=== PATIENT | male | born 1965 | race Caucasian/White ===

== ENCOUNTER 2018-09-14 12:10 | Inpatient (IN) | payer OTHER ==
[2018-09-14] MEDS ORDERED: HYDROMORPHONE HCL 1 MG/ML INJ IV PRN (13:12)
[2018-09-14] MEDS ORDERED: DIPHENHYDRAMINE 25 MG TAB/CAP PO PRN (13:13)
[2018-09-14] MEDS ORDERED: LOPERAMIDE HCL 2 MG CAPSULE PO PRN (13:13)
[2018-09-14] MEDS ORDERED: ONDANSETRON 4 MG (ODT) TAB PO PRN (13:14)
[2018-09-14] MEDS ORDERED: POLYETHYL GLY 3350 17 GM/DOSE PO PRN (13:14)
[2018-09-14] MEDS ORDERED: ONDANSETRON 4 MG/2 ML VIAL IV PRN (13:14)
--- NOTE | 2018-09-14 13:19 | RAD REPORT ---
EXAM DESCRIPTION: Martin Hinojosa (2 Views)09/14/2018 1:12 pm CLINICAL HISTORY: Chest pain COMPARISON: None FINDINGS: The lungs appear clear of acute infiltrate. The heart is normal size IMPRESSION: No acute abnormalities displayed
[2018-09-14] MEDS ORDERED: VANCOMYCIN/NS 1 gm 1 GM/250 ML BAG IV SCH (13:30)
[2018-09-14 13:40] LABS: Absolute Lymphocytes (CBC) 2.9 K/uL (0.7-4.9); Basophils % 0.7 % (0-1.3); Eosinophils % 1.5 % (0-4.4); Hematocrit 41.9 % (39.6-49.0); Lymphocytes % 24.3 % (15.3-44.8); MPV 9.7 fL (7.6-11.3); Monocytes % 8.4 % (3.3-12.3); RBC Red Blood Cell Count 4.79 M/uL (4.33-5.43)
[2018-09-14 14:26] LABS: Albumin 3.6 g/dL (3.4-5.0); Bilirubin Direct 0.1 mg/dL (0-0.2); Bilirubin Total 0.5 mg/dL (0.2-1.0); Magnesium 2.5 mg/dL (1.8-2.4); Phosphorus 2.6 mg/dL (2.5-4.9); Potassium 3.9 mmol/L (3.5-5.1); Protein, Total 7.4 g/dL (6.4-8.2); Thyroid Stimulating Hormone 1.83 uIU/mL (0.360-3.740)
[2018-09-14] MEDS: NACHLORIDE 0.45% 1,000 ML IV SCH (14:44)
--- NOTE | 2018-09-14 14:55 | RAD REPORT ---
EXAM DESCRIPTION: Meera Paz Left09/14/2018 2:47 pm CLINICAL HISTORY: Left leg pain/wound FINDINGS: No fracture is seen. No bony destructive lesion noted. Diffuse edema is present within subcutaneous tissues
[2018-09-14] MEDS: VANCOMYCIN 1.75 GM in NA CHLORIDE 0.9% 500 ML IVPB SCH (16:58)
[2018-09-14] MEDS: ENOXAPARIN 40 MG/0.4 ML SQ SCH (17:00)
[2018-09-14 18:21] LABS: Urine Appearance CLEAR; Urine Bilirubin NEGATIVE (NEG); Urine Blood NEGATIVE (NEG); Urine Color YELLOW; Urine Glucose NEGATIVE (NEG); Urine Microscopic Reflex NO UMIC; Urine Protein NEGATIVE (NEG); Urine Specific Gravity 1.015 (1.005-1.030)
--- NOTE | 2018-09-14 19:22 | CON ---
Date of Consultation: 09/14/2018 Reason For Consultation: Infection, left leg. History Of Present Illness: The patient is a 53-year-old gentleman, who presented to Dr. Patten's off ice today with a worsening infection of his left leg. The patient states that he had an injury via a metal object about 2 weeks ago and about a week ago it started to become infected. He went and saw his physician on Monday, was started on Keflex and followed up today and the redness got worse and th ere was pus oozing from the wound on the left anterior leg surrounded by erythema, warmth, and edema. Therefore, he was admitted and I was consulted. He is awake, alert, denies any fever or chills. N o sore throat, runny nose, cough, headaches, or dizziness. No chest pain. Review of Systems: Otherwise unremarkable. Past Medical History: Significant for hyperlipidemia, osteoarthritis, hypothyroidism, cholelithiasis . Past Surgical History: Hernia surgery, ear surgery. Allergies: NO ALLERGIES. Social History: He quit smoking 4-5 years ago and denies drinking. Family History: Noncontributory. Physical Examination: Vital signs: Stable. Currently afebrile. General: Awake, alert, oriented x3. Head and Neck: Cranial nerves 2 through 12 grossly within normal limits. No neck masses. No JVD. Throat clear. Neck is supple. Chest: Clear. Heart: S1, S2. Abdomen: Soft. Extremities: Neurovascularly intact. Nonfocal. Left anterior leg approximately 10 x 15 cm area of erythema, warmth, edema with central fluctuance and induration as well as necrotic tissue with t issue approximately 3 x 3 cm and pus oozing. Laboratory Data: Pending. X-rays: Pending. Assessment: Left leg abscess with cellulitis. Recommendation: Admit n.p.o. after midnight. IV fluid, IV antibiotic to the OR for incision, draina ge, and debridement of the left leg abscess. The patient and family understand the risks, benefits, and alternatives and agreed to proceed. /MODL Voice ID: [id number] Report ID: [id number]
--- NOTE | 2018-09-14 23:22 | EKG ---
Test Date: 2018-09-14 Test Time: 13:19:08 Client Technical Professional: TOMA MEASUREMENT RESULTS: Intervals: Rate: 68 SD: 168 QRSD: 106 QT: 388 QTc: 412 [place]: P: 66 SD: 168 QRS: 62 T: 60 INTERPRETIVE STATEMENTS: Normal sinus rhythm with sinus arrhythmia Normal ECG No previous ECG available for comparison Electronically Signed On 09-14-18 23:21:47 CDT by Stewart Mcdonald
[2018-09-15 06:09] LABS: Absolute Lymphocytes (CBC) 2.5 K/uL (0.7-4.9); Basophils % 0.6 % (0-1.3); Eosinophils % 2.2 % (0-4.4); Hematocrit 38.8 % (39.6-49.0); MPV 9.5 fL (7.6-11.3); Monocytes % 11.1 % (3.3-12.3); RBC Red Blood Cell Count 4.35 M/uL (4.33-5.43)
[2018-09-15 06:22] LABS: Magnesium 2.3 mg/dL (1.8-2.4); Potassium 4.5 mmol/L (3.5-5.1)
[2018-09-15 06:39] VITALS: BMI 35.9
[2018-09-15] MEDS ORDERED: Ringers Lactate 1,000 ML IV ONE (08:41)
[2018-09-15] MEDS ORDERED: PROPOFOL 200 MG/20 ML VIAL IV ONE (08:55)
[2018-09-15] MEDS ORDERED: MIDAZOLAM HCL 2 MG/2 ML INJ ONE (08:55)
[2018-09-15] MEDS ORDERED: FENTANYL CITR 100 MCG/2 ML ONE (08:56)
[2018-09-15] MEDS ORDERED: LIDOCAINE 1% MPF 5 ML VIAL ONE (08:56)
[2018-09-15] MEDS ORDERED: ONDANSETRON 4 MG/2 ML VIAL ONE (08:57)
[2018-09-15] MEDS ORDERED: KETOROLAC 30 MG/ML INJ ONE (09:08)
[2018-09-15] MEDS ORDERED: BUPIVACAINE 0.5% Inj,MDV 50 mL VIAL ONE (09:12)
--- NOTE | 2018-09-15 09:14 | P.OP ---
Preoperative diagnosis: Abscess and Cellulitis Left Leg Postoperative diagnosis: same Primary procedure: I and D and Debridement Left Leg Abscess Anesthesia: General Estimated blood loss: min Specimen: pus and necrotic tissue Findings: as above Complications: None Transferred to: Recovery Room Condition: Good
[2018-09-15] MEDS ORDERED: COLLAGENASE 30 GM OINTMENT TOP ONE (09:19)
[2018-09-15] MEDS: HYDROMORPHONE HCL 1 MG/ML INJ ONE ×2 (09:35→09:43)
[2018-09-15] MEDS ORDERED: CHLORHEXIDINE GLUCO 4% 120 ML TOP SCH (10:00)
--- NOTE | 2018-09-15 10:11 | P.PN ---
Subjective Date of Service: 09/15/18 Chief Complaint: SP SURGERY. Subjective: Improving LEG ULCER. SP SURGERY. DEBRIDED, DOING WELL IN THE RECOVERY. Review of Systems 10-point ROS is otherwise unremarkable Physical Examination - Vital Signs Temperature: 97 F Blood Pressure: 125/69 Pulse: 66 Respirations: 16 Pulse Ox (%): 98 - Physical Exam General: Alert, Mild distress HEENT: Atraumatic, PERRLA, EOMI Neck: Supple, JVD not distended Respiratory: Clear to auscultation bilaterally, Normal air movement Cardiovascular: Regular rate/rhythm, Normal S1 S2 Gastrointestinal: Normal bowel sounds, No tenderness Musculoskeletal: No tenderness Integumentary: No rashes Neurological: Normal speech, Normal tone, Normal affect Lymphatics: No axilla or inguinal lymphadenopathy - Studies Laboratory Data (last 24 hrs) 09/15/18 05:31: Sodium 142, Potassium 4.5, BUN 18, Creatinine 1.11, Glucose 108 H, Magnesium 2.3 09/15/18 05:31: WBC 11.3 H, Hgb 12.8 L, Hct 38.8 L, Plt Count 264 09/14/18 13:20: PT 11.8, INR 1.00, APTT 32.7 09/14/18 13:20: Sodium 140, Potassium 3.9, BUN 17, Creatinine 1.12, Glucose 118 H, Phosphorus 2.6, Magnesium 2.5 H, Total Bilirubin 0.5, AST 42 H, ALT 87 H, Alkaline Phosphatase 62 09/14/18 13:20: WBC 11.9 H, Hgb 13.9, Hct 41.9, Plt Count 303 Medications List Reviewed: Yes Assessment And Plan - Current Problems (Diagnosis) (1) Abscess Current Visit: Yes Status: Acute Plan: IV VANCOMYCIN. SP DEBRIDED. MAY GO HOME ON MONDAY.
[2018-09-15] MEDS: ACETAMINOPHEN 325 MG TABLET PO PRN ×3 (12:15→20:54)
[2018-09-15] MEDS: VANCOMYCIN 1.75 GM in NA CHLORIDE 0.9% 500 ML IVPB SCH (12:16)
[2018-09-15] MEDS: ENOXAPARIN 40 MG/0.4 ML SQ SCH (16:37)
[2018-09-15] MEDS: MUPIROCIN 2% OINT 22GM TUBE TOP SCH (20:46)
--- NOTE | 2018-09-15 21:12 | OP ---
Date of Procedure: 09/15/2018 Surgeon: Dennis Pathak MD Preoperative Diagnosis: Abscess with cellulitis left leg. Postoperative Diagnosis: Abscess with cellulitis left leg. Procedure: Incision, drainage and debridement of left leg abscess. Estimated Blood Loss: Minimal. Specimen: Pus and necrotic tissue. Finding: As above. Anesthesia: General. Complications: None. Disposition: The patient tolerated the procedure in stable condition, was taken to recovery in good general condition. Procedure In Detail: The patient was brought to the OR and placed in supine position. General anest hesia was begun. The patient was prepped and draped in the usual sterile fashion. Marcaine 0.5% was infiltrated locally. There was necrotic tissue present in the anterior mid leg, approximately 3 x 4 cm area of necrotic tissue was debrided. Pus under pressure evacuated. Cultures done. Necrotic ti ssue was debrided. Wound irrigated. Bleeding controlled with cautery. Wet-to-dry normal saline conor ssing change was applied. The patient tolerated the procedure in stable condition and taken to Recovery in good general condition. ANTHONY/MODL Voice ID: [id number] Report ID: [id number]
[2018-09-15] MEDS: NACHLORIDE 0.45% 1,000 ML IV SCH (23:20)
[2018-09-16] MEDS: VANCOMYCIN 1.75 GM in NA CHLORIDE 0.9% 500 ML IVPB SCH ×2 (04:11→22:16)
[2018-09-16] MEDS ORDERED: NA CHLORIDE 0.9% 0 ML ONE (04:25)
[2018-09-16] MEDS: LEVOTHYROXINE SOD 0.05 MG TABLET PO SCH (05:18)
[2018-09-16 06:01] LABS: Absolute Lymphocytes (CBC) 2.3 K/uL (0.7-4.9); Basophils % 0.7 % (0-1.3); Eosinophils % 1.7 % (0-4.4); Hematocrit 38.8 % (39.6-49.0); MPV 9.4 fL (7.6-11.3); Monocytes % 9.6 % (3.3-12.3)
[2018-09-16 06:26] LABS: Magnesium 2.1 mg/dL (1.8-2.4); Potassium 4.6 mmol/L (3.5-5.1)
[2018-09-16] MEDS: MUPIROCIN 2% OINT 22GM TUBE TOP SCH ×2 (08:39→21:19)
[2018-09-16] MEDS: ACETAMINOPHEN 325 MG TABLET PO PRN ×2 (12:09→17:16)
[2018-09-16] MEDS: NACHLORIDE 0.45% 1,000 ML IV SCH (12:11)
--- NOTE | 2018-09-16 13:50 | P.PN ---
Subjective Date of Service: 09/16/18 Chief Complaint: SP SURGERY. Subjective: Ambulating LEG ULCER. SP SURGERY. DEBRIDED, DOING WELL IN THE RECOVERY. STABLE, NO CHANGES. Review of Systems 10-point ROS is otherwise unremarkable General: Weakness Physical Examination - Vital Signs Temperature: 98.6 F Blood Pressure: 156/88 Pulse: 67 Respirations: 17 Pulse Ox (%): 98 - Physical Exam General: Alert, Mild distress HEENT: Atraumatic, PERRLA, EOMI Neck: Supple, JVD not distended Respiratory: Clear to auscultation bilaterally, Normal air movement Cardiovascular: Regular rate/rhythm, Normal S1 S2 Gastrointestinal: Normal bowel sounds, No tenderness Musculoskeletal: No tenderness Integumentary: Other (COMPLICATED , INFECTED POST INJURY ULCER. ) Neurological: Normal speech, Normal tone, Normal affect Lymphatics: No axilla or inguinal lymphadenopathy - Studies Laboratory Data (last 24 hrs) 09/16/18 05:33: Sodium 139, Potassium 4.6, BUN 15, Creatinine 1.03, Glucose 103 , Magnesium 2.1 09/16/18 05:33: WBC 11.3 H, Hgb 13.1 L, Hct 38.8 L, Plt Count 297 Microbiology Data (last 24 hrs): 09/15/18 09:00 Wound - L Leg (Lower) Gram Stain - Final 09/14/18 15:15 Wound - Leg Gram Stain - Final Medications List Reviewed: Yes Assessment And Plan - Current Problems (Diagnosis) (1) Abscess Current Visit: Yes Status: Acute Plan: IV VANCOMYCIN. SP DEBRIDED. MAY GO HOME ON MONDAY. HE IS GROWING GRAM NEGATIVE BACILLI. I WILL ADD CIPRO IV. CIPRO SHOULD COVER MOST GRAM NEG BACILLI EXCEPT PSEUDOMONAS OR ACINETOBACTER. FINAL ID IS PENDING. HE IS NOT HIGH RISK FOR SUCH BACTERIA.
[2018-09-16] MEDS: CIPROFLOXACIN 400mg IV 400 MG/200 ML BAG IV SCH ×2 (16:38→21:00)
[2018-09-16] MEDS: ENOXAPARIN 40 MG/0.4 ML SQ SCH (17:13)
[2018-09-17 05:04] LABS: Absolute Lymphocytes (CBC) 2.7 K/uL (0.7-4.9); Basophils % 0.6 % (0-1.3); Eosinophils % 1.9 % (0-4.4); Hematocrit 39.5 % (39.6-49.0); Lymphocytes % 22.6 % (15.3-44.8); MPV 8.9 fL (7.6-11.3); Monocytes % 9.4 % (3.3-12.3); RBC Red Blood Cell Count 4.43 M/uL (4.33-5.43)
[2018-09-17 05:24] LABS: Magnesium 2.2 mg/dL (1.8-2.4); Potassium 4.4 mmol/L (3.5-5.1)
[2018-09-17] MEDS: LEVOTHYROXINE SOD 0.05 MG TABLET PO SCH (05:32)
[2018-09-17] MEDS: MUPIROCIN 2% OINT 22GM TUBE TOP SCH ×2 (08:03→21:13)
[2018-09-17] MEDS: CIPROFLOXACIN 400mg IV 400 MG/200 ML BAG IV SCH ×2 (08:04→21:12)
[2018-09-17] MEDS: NACHLORIDE 0.45% 1,000 ML IV SCH ×2 (08:05→21:14)
[2018-09-17] MEDS: ACETAMINOPHEN 325 MG TABLET PO PRN (09:39)
[2018-09-17] MEDS: SODIUM HYPOCHLORITE 0.25% 473 ML TOP SCH (12:49)
--- NOTE | 2018-09-17 15:39 | PN ---
Date of Progress Note: 09/17/2018 Subjective: The patient is awake, alert. No compliant. Vital signs are stable. Afebrile. White c ount is still elevated 12,000. Culture and sensitivity grew out Aeromonas hydrophila sensitive to mo st antibiotics. The patient is currently on Vanco and Cipro. Stated sensitive to Cipro. His wound has a grayish bed to it with fibrin deposition. There is still surrounding erythema and induration, but no fluctuance. Assessment: Status post incision and drainage of left leg abscess with cellulitis. Recommendation: Discussed the case with Dr. Patten. We will keep the patient on antibiotics. We jose d l perhaps increase it to meropenem. Continue wound care as ordered. Will last collagenase to the dr leary changes, and will follow up [facility] upon discharge. /MODL Voice ID: [id number] Report ID: [id number]
[2018-09-17] MEDS: ENOXAPARIN 40 MG/0.4 ML SQ SCH (16:33)
[2018-09-17] MEDS: CEFTRIAXONE/SWI 2gm 2 GM/20 ML SYR IV SCH (21:12)
--- NOTE | 2018-09-17 21:12 | P.PN ---
Subjective Date of Service: 09/17/18 Chief Complaint: SP SURGERY. Subjective: Improving LEG ULCER. SP SURGERY. DEBRIDED, DOING WELL IN THE RECOVERY. STABLE, NO CHANGES. HE IS STABLE. HAS NO PAIN. NO FEVER. Review of Systems 10-point ROS is otherwise unremarkable Physical Examination - Vital Signs Temperature: 98.4 F Blood Pressure: 118/74 Pulse: 61 Respirations: 18 Pulse Ox (%): 98 - Physical Exam General: Alert, In no apparent distress HEENT: Atraumatic, PERRLA, EOMI Neck: Supple, JVD not distended Respiratory: Clear to auscultation bilaterally, Normal air movement Cardiovascular: Regular rate/rhythm, Normal S1 S2 Gastrointestinal: Normal bowel sounds, No tenderness Musculoskeletal: No tenderness Integumentary: No rashes, Erythema, Other (COMPLICATED NECROTIZING WOUND.) Neurological: Normal speech, Normal tone, Normal affect Lymphatics: No axilla or inguinal lymphadenopathy - Studies Laboratory Data (last 24 hrs) 09/17/18 04:38: Sodium 141, Potassium 4.4, BUN 13, Creatinine 1.03, Glucose 107 H, Magnesium 2.2 09/17/18 04:38: WBC 12.0 H, Hgb 13.1 L, Hct 39.5 L, Plt Count 312 Microbiology Data (last 24 hrs): 09/15/18 09:00 Wound - L Leg (Lower) Gram Stain - Final 09/15/18 09:00 Wound - L Leg (Lower) Gram Stain - Final 09/14/18 15:15 Wound - Leg Gram Stain - Final 09/14/18 15:15 Wound - Leg Culture & Sensitivity - Final Aeromonas Hydrophilia 09/14/18 17:20 Clean Catch Urine [place] Count - Final <10,000 CFU/ML. 09/14/18 17:20 Clean Catch Urine - Final No growth. Medications List Reviewed: Yes Assessment And Plan - Current Problems (Diagnosis) (1) Abscess Current Visit: Yes Status: Acute Plan: IV VANCOMYCIN. SP DEBRIDED. MAY GO HOME ON MONDAY. HE IS GROWING GRAM NEGATIVE BACILLI. I WILL ADD CIPRO IV. CIPRO SHOULD COVER MOST GRAM NEG BACILLI EXCEPT PSEUDOMONAS OR ACINETOBACTER. FINAL ID IS PENDING. HE IS NOT HIGH RISK FOR SUCH BACTERIA. AEROMONAS FROM THE WOUND . ADD ROCEPHIN BID AREA STAYS INFLAMED AND HE HAS MILD HIGH WBC COUNT.
[2018-09-18] MEDS: ACETAMINOPHEN 325 MG TABLET PO PRN (05:46)
[2018-09-18] MEDS: LEVOTHYROXINE SOD 0.05 MG TABLET PO SCH (05:46)
[2018-09-18 06:26] LABS: Absolute Lymphocytes (CBC) 2.6 K/uL (0.7-4.9); Basophils % 0.8 % (0-1.3); Eosinophils % 2.6 % (0-4.4); Lymphocytes % 23.7 % (15.3-44.8); MPV 9.1 fL (7.6-11.3); Monocytes % 8.6 % (3.3-12.3); RBC Red Blood Cell Count 4.51 M/uL (4.33-5.43)
[2018-09-18 06:30] LABS: Magnesium 2.2 mg/dL (1.8-2.4); Potassium 4.7 mmol/L (3.5-5.1)
[2018-09-18] MEDS ORDERED: COLLAGENASE 30 GM OINTMENT TOP SCH (09:00)
[2018-09-18] MEDS: CIPROFLOXACIN 400mg IV 400 MG/200 ML BAG IV SCH (10:03)
[2018-09-18] MEDS: MUPIROCIN 2% OINT 22GM TUBE TOP SCH (10:03)
[2018-09-18] MEDS: SODIUM HYPOCHLORITE 0.25% 473 ML TOP SCH (10:05)
[2018-09-18] MEDS: CEFTRIAXONE/SWI 2gm 2 GM/20 ML SYR IV SCH (10:10)
--- NOTE | 2018-09-18 13:04 | P.DS ---
Admission Date: 09/14/18 Discharge Date: 09/18/18 Disposition: ROUTINE DISCHARGE Discharge Condition: FAIR Reason for Admission: SP SURGERY. - Problems (1) Abscess Current Visit: Yes Status: Acute Hospital Course: NORA IS DOING GREAT. DR. DICKSON HAS SEEN ULCER TODAY. HE HAS OKAYED DC. HE WILL TAKE CEFTIN BID FOR [address] FU WITH [address] DICKSON. HIS ULCER DRESSING WILL BE BY DR. DICKSON. Vital Signs/Physical Exam: Temp Pulse Resp BP Pulse Ox 98.1 F 63 18 141/67 H 99 09/18/18 12:00 09/18/18 12:00 09/18/18 12:00 09/18/18 12:00 09/18/18 12:00 General: Alert, In no apparent distress HEENT: Atraumatic, PERRLA, EOMI Neck: Supple, JVD not distended Respiratory: Clear to auscultation bilaterally, Normal air movement Cardiovascular: Regular rate/rhythm, Normal S1 S2 Gastrointestinal: Normal bowel sounds, No tenderness Musculoskeletal: No tenderness Integumentary: No rashes Neurological: Normal speech, Normal tone, Normal affect Lymphatics: No axilla or inguinal lymphadenopathy Laboratory Data at Discharge: WBC 11.0 K/uL (4.3-10.9) H 09/18/18 05:41 Hgb 13.3 g/dL (13.6-17.9) L 09/18/18 05:41 Hct 40.0 % (39.6-49.0) 09/18/18 05:41 Plt Count 332 K/uL (152-406) 09/18/18 05:41 PT 11.8 SECONDS (9.5-12.5) 09/14/18 13:20 INR 1.00 09/14/18 13:20 APTT 32.7 SECONDS (24.3-36.9) 09/14/18 13:20 Sodium 141 mmol/L (136-145) 09/18/18 05:41 Potassium 4.7 mmol/L (3.5-5.1) 09/18/18 05:41 BUN 17 mg/dL (7-18) 09/18/18 05:41 Creatinine 1.30 mg/dL (0.55-1.3) 09/18/18 05:41 Glucose 111 mg/dL (74-106) H 09/18/18 05:41 Phosphorus 2.6 mg/dL (2.5-4.9) 09/14/18 13:20 Magnesium 2.2 mg/dL (1.8-2.4) 09/18/18 05:41 Total Bilirubin 0.5 mg/dL (0.2-1.0) 09/14/18 13:20 AST 42 U/L (15-37) H 09/14/18 13:20 ALT 87 U/L (12-78) H 09/14/18 13:20 Alkaline Phosphatase 62 U/L (45-117) 09/14/18 13:20 Home Medications: Collagenase [Santyl Ointment*] 1 appl TOP BID 09/14/18 Ezetimibe 10 mg PO DAILY 09/14/18 Levothyroxine [Synthroid] 50 mcg PO [id number] 09/14/18 cephALEXin [Cephalexin] 500 mg PO TID 09/14/18
--- NOTE | 2018-09-18 14:28 | PN ---
Date of Progress Note: 09/18/2018 Subjective: The patient is awake and alert. No complaint. Vital signs are stable, afebrile. White count is 11,000. Wound has increasing granulation tissue, decreasing redness, erythema, warmth, or edema. Assessment: Status post incision, drainage and debridement of left leg abscess. Recommendations: The patient is cleared from Surgery for discharge on oral antibiotics. Wound care is ordered follow up in the wound healing center in 1 week. ANTHONY/TIAN Voice ID: [id number] Report ID: [id number]
[2018-09-19 14:42] VITALS: BP 141/67; TEMP 98.1
[2018-09-19 14:57] VITALS: O2SAT 96
== END 2018-09-18 14:55 | disposition home or self-care (01) | DRG 603 ==
LOC: 4TH 12:10
PROVIDERS: ADMIT Internal Medicine; ATTEND Internal Medicine
PROC: 0HDLXZZ Extraction of Left Lower Leg Skin, External Approach (ICD-10-PCS; principal; 2018-09-15 09:00)
DX: L02.416 Cutaneous abscess of left lower limb (principal); L97.929 Non-pressure chronic ulcer of unspecified part of left lower leg with unspecified severity; L03.116 Cellulitis of left lower limb; E78.5 Hyperlipidemia, unspecified; E03.9 Hypothyroidism, unspecified; K76.0 Fatty (change of) liver, not elsewhere classified; Z87.891 Personal history of nicotine dependence
CPT/HCPCS: 36415; 71046; 80048; 80076; 80202; 81003; 82306; 82607; 83735; 84100; 84443; 85025; 85610; 85730; 87040; 87070; 87075; 87077; 87086; 87088; 87186; 87205; 88304; 93005; J0696; J0744; J1170; J1650; J2250; J2405; J2704; J3010; J3590

== ENCOUNTER 2020-12-17 11:41 | Day surgery (SDC) | payer BC ==
--- NOTE | 2020-12-15 15:36 | RAD REPORT ---
EXAM DESCRIPTION: Martin Hinojosa (2 Views)12/15/2020 3:25 pm CLINICAL HISTORY: Preop for cardiac catheterization COMPARISON: 2019 FINDINGS: The lungs appear clear of acute infiltrate. The heart is normal size IMPRESSION: No acute abnormalities displayed
[2020-12-15 15:55] LABS: Absolute Lymphocytes (CBC) 3.1 K/uL (0.7-4.9); Basophils % 0.5 % (0-1.3); Hematocrit 42.5 % (39.6-49.0); Lymphocytes % 31.9 % (15.3-44.8); MPV 8.7 fL (7.6-11.3)
[2020-12-15 15:58] LABS: Potassium 3.9 mmol/L (3.5-5.1); Protime INR 0.97
--- NOTE | 2020-12-16 16:59 | EKG ---
Test Date: 2020-12-15 Test Time: 14:10:06 School Aide: AUDREY MEASUREMENT RESULTS: Intervals: Rate: 58 VT: 174 QRSD: 96 QT: 406 QTc: 398 [place]: P: 73 VT: 174 QRS: 79 T: 69 INTERPRETIVE STATEMENTS: Sinus bradycardia Nonspecific T wave abnormality Abnormal ECG Compared to ECG 09/14/2018 13:19:08 T-wave abnormality now present Sinus rhythm no longer present Sinus arrhythmia no longer present Electronically Signed On 12-16-20 16:58:00 CDT by David Nino
[2020-12-17] MEDS ORDERED: NA CHLORIDE 0.9% 500 ML ONE (12:13)
[2020-12-17 12:45] VITALS: TEMP 97
[2020-12-17] MEDS ORDERED: HEPA 1000U/500MLS 2,000 UNIT/1,000 ML BAG IV ONE (14:27)
[2020-12-17] MEDS ORDERED: ATROPINE SULF 1 MG/10 ML SYR IV ONE (14:38)
[2020-12-17] MEDS ORDERED: TICAGRELOR 90 MG TABLET PO ONE (14:38)
[2020-12-17] MEDS ORDERED: FENTANYL CITR 100 MCG/2 ML ONE (14:38)
[2020-12-17] MEDS ORDERED: HEPARIN 5000 UNIT/ML 1 ML VIAL ONE (14:38)
[2020-12-17] MEDS ORDERED: MIDAZOLAM HCL 2 MG/2 ML INJ ONE (14:38)
[2020-12-17] MEDS ORDERED: VERAPAMIL HCL 10 MG/4 ML VIAL IV ONE (14:38)
[2020-12-17] MEDS ORDERED: CLOPIDOGREL 75 MG TABLET ONE (14:48)
--- NOTE | 2020-12-17 15:44 | OP ---
Date of Procedure: 12/17/2020 Surgeon: YOLANDA TRIPATHI Procedure Performed: Selective coronary angiogram. Indication: Abnormal stress test. Access: Right radial artery 6-Romanian closed with TR band. Complications: None. Bleeding: Less than 10 mL. Anesthesia: Total sedation time was 50 minutes. Description Of Procedure: After risks, benefits, and alternatives were explained, the patient agreed to proceed and signed informed consent. The patient was brought to the cardiac catheterization [facility], prepped and draped in usual sterile fashion. Then, we accessed right radial artery using ped iatric micropuncture kit, placed a 6-Romanian Slender sheath and took a 5-Romanian Miles 4.0 catheter in the aortic root over a J-wire, engaged the left main and right coronary artery, took standard views a nd then removed the catheter and sheath, placed TR band with good hemostasis. Findings: 1.Left main; very short and normal. 2.LAD; large size vessel, normal. 3.Left circumflex is normal. 4.RCA; large dominant and normal. Conclusion: Normal coronary arteries and falsely positive stress test. Recommendation: Lifestyle modification. SR/MODL Voice ID: [id number] Report ID: [id number]
[2020-12-17 16:14] VITALS: O2SAT 98
[2020-12-17 16:31] VITALS: BP 147/59
== END 2020-12-17 16:53 | disposition home or self-care (01) ==
LOC: CCL 11:41
PROVIDERS: ATTEND Internal Medicine
DX: R94.39 Abnormal result of other cardiovascular function study (principal); E78.5 Hyperlipidemia, unspecified; E03.9 Hypothyroidism, unspecified; Z87.891 Personal history of nicotine dependence; Z20.822 Contact with and (suspected) exposure to COVID-19
CPT/HCPCS: 93005; 85025; 80048; 36415; 85610; 85730; 71046; 93454; U0003; C1893; J1644 ×2; J2250; J3010; J7040